=== PATIENT | female | born 1940 | race Caucasian/White ===

== ENCOUNTER 2025-10-04 17:33 | Emergency (ER) | payer MEDICARE, OTHER, SELFPAY ==
[2025-10-04 17:33] VITALS: BP 172/75; PULSE 108; RESP 14; TEMP 36.5; O2SAT 98; BMI 34.2
--- NOTE | 2025-10-04 18:06 | ED.VIS.CHEST ---
HPI History of Present Illness Chief Complaint: Chest Pain Informant: patient Onset/Context/Timing Onset: Today and Hours (1) Activity at onset: sudden and activity on onset (Eating dinner) Timing: Continuous Quality: Positive for Sharp Location: - (Lower thoracic) Worsened By: Nothing Relieved By: - (Chiropractic treatment) Associated Symptoms: Positive for Diaphoresis and Acid Reflux; Negative for Nausea, Vomiting, Dyspnea, Cough, Fever, Lightheadedness or Palpitations Narrative Narrative: Patient presents with mid back pain and chest pain that began approximately 1 hour prior to arrival. Patient states she was eating dinner when this began. Patient states it began rather suddenly. Patient describes it as sharp. Patient is diffuse across her lower thoracic area. Patient states she was seen by her chiropractor earlier in the day. Patient states she went back to her chiropractor after the pain started. Patient states he readjusted her thoracic area and her pain improved but is still present. Patient states she got clammy and had some reflux symptoms. Patient states she was belching. Patient states she has a history of a hiatal hernia and has had surgical repair of that. Patient also states she has a history of fibromyalgia and states this may be related to that. 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 Fibromyalgia Home Medications ?Medication ?Instructions ?Recorded ?Last Taken ?Type hydrochlorothiazide 50 mg tablet 50 mg PO DAILY 08/18/16 Unknown History losartan 25 mg tablet 25 mg PO DAILY 08/18/16 08/19/16 07:30 History 25 MG nortriptyline 25 mg capsule 25 mg PO DAILY 08/18/16 Unknown History tizanidine 4 mg tablet 4 mg PO DAILY 08/18/16 Unknown History Allergy/AdvReac Type Severity Reaction Status Date / Time codeine Allergy Unknown PT UNSURE Verified 10/04/25 17:34 OF REACTION sulfamethoxazole (From Allergy Unknown PT UNSURE Verified 10/04/25 17:34 Bactrim) OF REACTION trimethoprim (From Bactrim) Allergy Unknown PT UNSURE Verified 10/04/25 17:34 OF REACTION Family History (Updated 10/04/25 @ 18:04 by Soni Dangelo) Mother CVA (cerebral vascular accident) Brother Cancer Surgical History History of hip replacement, total Social History Smoking Status: Former smoker ROS ROS ED Constitutional Constitutional ED: Denies chills or fever(s) Eyes Eyes: Denies blurry vision or change in vision ENT ENT ED: Denies rhinorrhea or sore throat Cardiovascular Cardiovascular: Reports as per HPI and chest pain; Denies palpitations Respiratory/Chest Respiratory/Chest: Denies cough or dyspnea Gastrointestinal Gastrointestinal: Denies nausea or vomiting Genitourinary Genitourinary ED: Denies dysuria or hematuria Musculoskeletal Musculoskeletal: Reports back pain; Denies neck pain Integumentary Reports rash; Denies abscess Neurologic Neurologic: Denies headache(s) or weakness Allergic/Immunologic Allergic/Immunologic ED: Denies mouth swelling or urticaria EXAM Physical Exam Const Vital Signs: 10/04/25 17:33 10/04/25 18:16 10/04/25 18:23 Temperature 97.7 F L Temperature Source Oral Pulse Rate 108 H 92 Respiratory Rate 14 Blood Pressure 172/75 H 143/49 H Blood Pressure Mean 107 Pulse Ox 98 Oxygen Delivery Method Room Air Room Air 10/04/25 18:33 10/04/25 20:00 Temperature Temperature Source Pulse Rate 105 H 91 Respiratory Rate 19 H 14 Blood Pressure 143/49 H 164/84 H Blood Pressure Mean 80 110 Pulse Ox 98 97 Oxygen Delivery Method Room Air Room Air Positive well nourished and well developed Constitutional Narrative: BMI is 34.2. General Appearance ED: well developed and NAD HEENT Reports moist mucous membranes normocephalic and atraumatic Neck supple and no JVD Resp normal respiratory effort and clear to auscultation bilaterally Cardio regular rate and regular rhythm GI soft to palpation, non-tender and non-distended Neuro oriented x3, CN's II-XII intact bilaterally and no sensory deficits noted Sensorium / Orientation: awake and alert Motor Exam: strength 5/5 throughout Psych mental status grossly normal Heart Score History: Slightly/Non-Suspicious ECG: Nonspecific Repolarization Age: >/= 65 years Risk Factors: 1 or 2 Risk Factors Troponin: </= Normal Limit Score: 4 MDM MDM MDM Narrative Medical decision making narrative: Differential diagnosis includes cardiac dysrhythmia, cardiac ischemia, pneumonia, bronchitis, dehydration, electrolyte abnormality, gastroesophageal reflux disease, musculoskeletal pain, and anxiety. EKG will be obtained to assess for cardiac dysrhythmia and cardiac ischemia. Chest x-ray will be obtained to assess for pneumonia and bronchitis. CBC will be obtained to assess for leukocytosis and anemia. Basic metabolic profile will be obtained to assess for electrolyte abnormality and renal function. High-sensitivity troponin will be obtained to assess for cardiac ischemia. 2-hour repeat high-sensitivity troponin will be obtained to assess for ongoing cardiac ischemia. Lab Data Attestation: I reviewed the patient's lab results. Lab results narrative: CBC was reviewed. There is a mild anemia with a hemoglobin of 10.0 and hematocrit 32.5. The remainder is within normal limits. Basic metabolic profile was reviewed. BUN was slightly elevated at 21 and creatinine was slightly elevated at 1.21. Glucose was mildly elevated at 139. Initial high-sensitivity troponin was reviewed and was slightly elevated at 17. 2-hour repeat high-sensitivity troponin was reviewed and was normal at 14. Labs: Laboratory Results - last 24 hr 10/04/25 10/04/25 17:40 19:43 WBC 8.0 RBC 3.62 L Hgb 10.0 L Hct 32.5 L MCV 89.8 MCH 27.6 MCHC 30.8 L RDW Std Deviation 45.1 H RDW Coeff of Soha 14.1 Plt Count 364 MPV 9.7 Immature Gran % (Auto) 0.600 Neut % (Auto) 62.1 Lymph % (Auto) 24.6 [place] % (Auto) 8.2 Eos % (Auto) 3.6 Baso % (Auto) 0.9 Absolute Neuts (auto) 5.0 Absolute Lymphs (auto) 1.97 Nucleated RBC % 0 Sodium 140 Potassium 3.3 Chloride 100 Carbon Dioxide 25.4 Anion Gap 14 BUN 21 H Creatinine 1.21 H Estim Creat Clear Calc 36.95 L Est GFR (MDRD) Non-Af 44 L BUN/Creatinine Ratio 17.1 Glucose 139 H Calcium 9.1 Troponin T High Sens 17 H Troponin T Hi Sens 2 Hr 14 Radiography Chest X-Ray - ED: 2 View, Read by ED Physician, Read by Radiologist and No Acute Disease Diagnostic Testing: PA and lateral chest x-ray was obtained. There are 2 views. On my independent interpretation, lung morin are clear. There is normal cardiac silhouette. Bony thorax is normal. There is no acute process noted. Radiologist also interpreted the x-ray and agrees. EKG Initial EKG: Attestation: I personally reviewed and interpreted this EKG as follows: Interpretation: Sinus Tachycardia (104), RBBB and Non-Specific ST Changes Comments: EKG was obtained. On my independent interpretation, shows sinus tachycardia with a rate of 104. [place] interval was normal at 192 ms. QRS interval was normal at 102 ms. QTc interval was normal at 460 ms. [place] was normal. There is a right bundle branch block pattern noted. There are nonspecific ST-T wave changes noted. Prior EKG tracings: not available for review Prior: No Prior Treatment and Re-Evaluation :: Patient was given aspirin and sublingual nitroglycerin. Patient was feeling better on reevaluation. Patient has a HEART score of 4. Patient wants to go home. Patient was instructed to follow-up with her primary care physician in 5 to 7 days. Patient was instructed to return if worse in any way. Patient and family understood and were agreeable with the plan. All questions were answered Discharge Plan Triage Chief Complaint: Chest Pain ED Provider: lOiver Ojeda Dx/Rx/DC Orders Clinical Impression: Chest pain, Elevated blood pressure reading Instructions: ED Chest Pain, Uncertain Cause Prescriptions: No Action tizanidine 4 MG tablet 4 mg PO DAILY Patient Comments: hydrochlorothiazide 50 MG tablet 50 mg PO DAILY Patient Comments: nortriptyline 25 MG capsule 25 mg PO DAILY Patient Comments: losartan 25 MG tablet 25 mg PO DAILY Patient Comments: Primary Care Provider: Liza Shukla NP Referrals: Liza Shukla NP, [employer] [Primary Care Provider, Family Practice] - 3-5 Days Print Language: Citizen Of [place] Disposition Disposition: Home, Self Care
[2025-10-04 18:23] VITALS: BP 143/49; PULSE 92
[2025-10-04] MEDS: Nitroglycerin SL (ED/IMG/CATH) 0.4 MG TABLET SL (18:23)
[2025-10-04 18:33] VITALS: BP 143/49; PULSE 105; RESP 19; O2SAT 98
--- NOTE | 2025-10-04 18:33 | RAD_ITS ---
PROCEDURE: CHEST PA AND LATERAL 10/04/2025 REASON FOR EXAM: CHEST PAIN TECHNIQUE: Procedure Code: RADCXR Modality: DX Procedure: CHEST PA AND LATERAL COMPARISON: None. FINDINGS: Elevation of the left hemidiaphragm secondary to gaseous distention of the stomach. Bilateral basilar atelectatic pulmonary changes. There is no demonstrated pleural abnormality. Enlarged cardiac silhouette. Normal mediastinum and shane. Normal visualized pulmonary arteries. Atheromatous plaques of the visualized aortic arch and descending thoracic aorta. Diffuse spondylosis of the visualized thoracic spine. Normal visualized ribs, clavicles. Degenerative joint disease. There is no demonstrated abnormality of the visualized soft tissue structures of the upper abdomen. RAD/Chest PA and Lateral IMPRESSION: Bilateral basilar atelectatic pulmonary changes. Reading [facility] [place]
[2025-10-04 19:04] LABS: Hematocrit 32.5 % (37-47); Hemoglobin 10.0 g/dL (12.0-15.0); Immature Granulocytes Count 0.050 X10^3/uL (0.0-0.0); Mean Corp Hgb Conc 30.8 g/dL (32-36); Mean Corpuscular Volume 89.8 fL (81-99); Mean Platelet Vol. 9.7 fl (6.2-12.0); NRBC Flagged by Analyzer 0 % (0-5); Platelet Count 364 K/mm3 (150-450); RBC Distribution Width CV 14.1 % (11.6-14.6); RBC Distribution Width SD 45.1 fl (35.1-43.9); Red Blood Count 3.62 M/mm3 (4.2-5.4); White Blood Count 8.0 K/mm3 (4.4-11.0)
[2025-10-04 19:13] LABS: Anion Gap 14 (5-15); BUN 21 mg/dL (4-19); BUN/Creat Ratio 17.1 RATIO (10-20); Calcium,Total 9.1 mg/dL (7.6-11.0); Carbon Dioxide 25.4 mmol/L (21.0-32.0); Chloride 100 mmol/L (98-108); Estimated Creatinine Clearance 36.95 ml/min (50-250); Glucose 139 mg/dL (70-99); Potassium 3.3 mmol/L (3.3-5.1); Troponin T High Sensitivity 17 ng/L (<=14)
[2025-10-04 20:00] VITALS: BP 164/84; PULSE 91; RESP 14; O2SAT 97
[2025-10-04 20:09] LABS: Troponin T High Sens 2 HR 14 ng/L (<=14)
[2025-10-04 20:42] VITALS: BP 157/78; PULSE 89; RESP 17; TEMP 36.6; O2SAT 97
== END 2025-10-04 20:44 | disposition home or self-care (01) ==
PROVIDERS: Emergency Provider Emergency Medicine; PCP Nurse Practitioner Family; Visit Provider Emergency Medicine
DX: R07.9 Chest pain, unspecified (principal); Z87.891 Personal history of nicotine dependence; K21.9 Gastro-esophageal reflux disease without esophagitis; I10 Essential (primary) hypertension; D64.9 Anemia, unspecified
CPT/HCPCS: 71046; 80048; 84484; 85025; 93005; 99285; A4216